=== PATIENT | male | born 1950 | race Caucasian/White ===

== ENCOUNTER 2017-07-01 17:12 | Emergency (ER) | payer OTHER ==
[~2017-07-01] VITALS: Ht 175.3 cm; Wt 123.7 kg
[~2017-07-01 17:12] MED LIST: AMLO10 PO; CIPR500T2 PO; DICL-86 PO; LEVA750T9 PO; LISI40TA PO; TRAM50 PO
[2017-07-01 17:15] VITALS: BP 194/108; PULSE 64; RESP 16; TEMP 97.9; O2SAT 96
[2017-07-01] MEDS ORDERED: LISI40TA PO (17:36)
[2017-07-01] MEDS ORDERED: METO50TA PO (17:36)
[2017-07-01] MEDS ORDERED: APIX5TAB PO (17:36)
[2017-07-01] MEDS ORDERED: AMLO10TA2 PO (17:36)
--- NOTE | 2017-07-01 17:40 | PD ---
HPI Chief Complaint: Pain: Acute or Chronic Time Seen by Provider: 17:22 Travel History International Travel<30 days: No Contact w/Intl Traveler<30days: No Traveled to known affect area: No History of Present Illness HPI This patient complains of left leg pain. Started yesterday. No injury. No fever. 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 He's been on Eliquis for one month. His legs been pain-free for a good 3 weeks now and he is concerned about the abrupt onset of left calf pain. He is concerned about a new clot and wants another ultrasound done. He's had an area of swelling on the lateral aspect of the left mid lower leg that was noted to be a hematoma on the ultrasound. It never really resolved. No alleviating factors. No exacerbating factors. Duration 2 days PFSH Past Medical History Hx Anticoagulant Therapy: Yes (ELIQUIS) Arthritis: Yes Asthma: No Autoimmune Disease: No Blood Disorders: No Anxiety: No Depression: No Heart Rhythm Problems: No Cancer: Yes (hx of prostate cancer) Cardiovascular Problems: Yes (HTN, DVT) High Cholesterol: No Chemotherapy: No Chest Pain: Yes Congestive Heart Failure: No COPD: No Cerebrovascular Accident: No Diabetes: No Endocrine: No GERD: No Glaucoma: No Genitourinary: Yes Headaches: No Hepatitis: No Hiatal Hernia: No Hypertension: Yes Immune Disorder: No Kidney Stones: No Musculoskeletal: Yes Neurologic: No Psychiatric: No Reproductive: No Respiratory: No Myocardial Infarction: No Radiation Therapy: Yes (gold seed implants) Renal Failure: No Seizures: No Sickle Cell Disease: No Sleep Apnea: Yes Thyroid Disease: No Ulcer: No Past Surgical History Abdominal Surgery: No AICD: No Body Medical Devices: gold seed implants in the prostate Cardiac Surgery: No Ear Surgery: No Endocrine Surgery: No Eye Surgery: Yes (left eye detached retina) Genitourinary Surgery: Yes (gold seed implants) Gynecologic Surgery: No Oral Surgery: No Pacemaker: No Thoracic Surgery: No Social History Alcohol Use: Yes (occ) Tobacco Use: No Substance Use: No Allergies-Medications (Allergen,Severity, Reaction): Coded Allergies: No Known Allergies (Verified Adverse Reaction, Unknown, 07/01/17) Reported Meds & Prescriptions Reported Meds & Active Scripts Active Reported Eliquis (Apixaban) 5 Mg Tab 5 Mg PO BID Metoprolol Tartrate 50 Mg Tab 50 Mg PO BID Lisinopril 40 Mg Tab 40 Mg PO DAILY Amlodipine (Amlodipine Besylate) 10 Mg Tab 10 Mg PO DAILY Review of Systems General / Constitutional: No: Fever Eyes: No: Visual changes HENT: No: Headaches Cardiovascular: No: Chest Pain or Discomfort Respiratory: No: Shortness of Breath Gastrointestinal: No: Abdominal Pain Genitourinary: No: Dysuria Musculoskeletal: Positive: Myalgias, Cramping, Edema, Pain Skin: No Rash Neurologic: No: Weakness Psychiatric: No: Depression Endocrine: No: Polydipsia Hematologic/Lymphatic: No: Easy Bruising Physical Exam Narrative GENERAL: Well-nourished, well-developed patient in no apparent distress. SKIN: Focused skin assessment reveals no rash and nodules. Skin is Warm and dry. HEAD: Atraumatic. Normocephalic. EYES: Pupils equal and round. No scleral icterus. No injection or drainage. ENT: No nasal bleeding or discharge. Mucous membranes pink and moist. NECK: Trachea midline. No JVD. CARDIOVASCULAR: Regular rate and rhythm. No murmur appreciated. RESPIRATORY: No accessory muscle use. Clear to auscultation. Breath sounds equal bilaterally. GASTROINTESTINAL: Abdomen soft, non-tender, nondistended. Hepatic and splenic margins not palpable. MUSCULOSKELETAL: No obvious deformities. No clubbing. No cyanosis. No edema. There is some swelling to the lateral aspect of the left lower leg. There is an oval-shaped area at spongy but not firm. No sign of infection there. NEUROLOGICAL: Awake and alert. No obvious cranial nerve deficits. Motor grossly within normal limits. Normal speech. PSYCHIATRIC: Appropriate mood and affect; insight and judgment normal. Data Data Last Documented VS Vital Signs Date Time Temp Pulse Resp B/P (MAP) Pulse Ox O2 Delivery O2 Flow Rate FiO2 07/01/17 17:38 16 07/01/17 17:15 97.9 64 194/108 (136) 96 Orders Orders Us Leg Venous Doppler (07/01/17 ) [facility] Medical Decision Making Medical Screen Exam Complete: Yes Emergency Medical Condition: Yes Medical Record Reviewed: Yes Differential Diagnosis New DVT, hematoma, muscle injury Narrative Course I have reviewed the patient's electronic medical record. I reviewed his outpatient ultrasound from one month ago Had a lengthy discussion with patient and regarding risks and benefits and alternatives of repeat Ultrasound ordering. Both of them want an ultrasound done. I've ordered it. Unclear if that would knife changer. I spoke with the endoscopy technican. She does not see any DVT at all. Does see a complex cyst were that chronically swollen area is. No hematoma seen I will await the formal radiology reading but based on this I would expect to discharge the patient to follow up with her primary physician with no change in management or medicine Diagnosis Primary Impression: Left leg pain Additional Instructions: Follow-up with primary care Med/Other Pt SpecificInfo: Other Disposition: 01 DISCHARGE HOME Condition: Stable Jose Antonio Mckay MD Jul 01, 2017 17:40
[2017-07-01 19:28] VITALS: BP 140/77; PULSE 62; RESP 20; O2SAT 99
--- NOTE | 2017-07-01 19:45 | RADRPT ---
EXAM DATE/TIME: 07/01/2017 18:26 [place] COMPARISON: No previous studies available for comparison. INDICATIONS : Left leg pain. MEDICAL HISTORY : Carcinoma, prostate. Arthritis. HTN. DVT. Chest pain. Sleep apnea. Dyspnea. Heartburn. Anticoagul ant therapy, Eliquis. SURGICAL HISTORY : Left eye detached retina. Gold seed implants. Left knee arthroscopy. Shoulder replacement. Bilateral cataract surgery. Radiation therapy. ENCOUNTER: Initial ACUITY: 1 month PAIN SCORE: 7/10 LOCATION: Left leg. TECHNIQUE: Venous ultrasound of the leg was performed from the inguinal ligament to the proximal calf. Real-heather e, color Doppler and spectral tracing, compression and augmentation techniques were used. FINDINGS: There is normal compressibility of the deep venous system from the inguinal region to the proximal ca lf. No echogenic clot is seen in the lumen of the common femoral, femoral, popliteal, and posterior tibial veins. There is a normal response of the venous system to proximal and distal augmentation an d respiration. CONCLUSION: 1. Negative for deep venous thrombosis. Complex cystic structure in the lateral left leg extending fr om the popliteal fossa to the mid calf over a length of 11.6 cm x 5.5 cm x 1.8 cm, possibly a complex Rees's cyst that has dissected inferiorly. Kamari Carroll MD on July 01, 2017 at 19:42 Board Certified Radiologist. This report was verified electronically.
[2017-07-01 20:25] VITALS: BP 138/72
== END 2017-07-01 20:55 | disposition home or self-care (01) ==
LOC: PHED 17:12
DX: M79.605 Pain in left leg (principal); I10 Essential (primary) hypertension; M19.90 Unspecified osteoarthritis, unspecified site; G47.30 Sleep apnea, unspecified; Z85.46 Personal history of malignant neoplasm of prostate; Z86.718 Personal history of other venous thrombosis and embolism
CPT/HCPCS: 93971; 99284